=== PATIENT | female | born 1940 | race Caucasian/White ===

== ENCOUNTER → 2017-02-07 | Outpatient (CLI) | payer MEDICARE, OTHER ==
--- NOTE | 2017-02-07 18:06 | Diagnostic Imaging Report ---
EXAMINATION: Left tibia and fibula. INDICATION: Knee pain. AP and lateral views were obtained. FINDINGS: There is no fracture, dislocation, or acute bony abnormality evident. As noted on the left knee exam performed in conjunction with the study, there is moderate narrowing of the medial compartment of the knee joint. The knee joint is otherwise well maintained. The ankle mortise is not widened, and the talar dome is smooth. Incidental note is made of a prominent calcaneal spur. The soft tissues are unremarkable. IMPRESSION: There is no evidence for an acute bony abnormality. Dictated by: Dictated on workstation # [id number]
--- NOTE | 2017-02-07 18:16 | Diagnostic Imaging Report ---
EXAMINATION: Left knee. INDICATION: Knee pain. Three views were obtained. FINDINGS: There is no fracture, dislocation, or acute bony abnormality evident. There is moderate narrowing of the medial compartment of the knee joint. The lateral compartment and the patellofemoral space are fairly well maintained. The soft tissues are unremarkable. IMPRESSION: 1. There is no evidence for an acute bony abnormality. 2. There is moderate narrowing of the medial compartment of the knee joint. Dictated by: Dictated on workstation # [id number]
== END ==
LOC: RAD 14:42
PROVIDERS: ATTEND Nurse Practitioner Family
DX: S89.92XA Unspecified injury of left lower leg, initial encounter (principal); M79.605 Pain in left leg; V58.9XXA Unspecified occupant of pick-up truck or van injured in noncollision transport accident in traffic accident, initial encounter; Y99.8 Other external cause status
CPT/HCPCS: 73562; 73590

== ENCOUNTER 2018-12-05 20:48 | Outpatient (CLI) | payer MEDICARE, OTHER | END 2018-12-06 06:15 | disposition home or self-care (01) | LOC: SLEEP 20:48 | PROVIDERS: ATTEND Family Medicine | DX: G47.33 Obstructive sleep apnea (adult) (pediatric) (principal); G47.10 Hypersomnia, unspecified; I10 Essential (primary) hypertension; R06.83 Snoring; F39 Unspecified mood [affective] disorder | CPT/HCPCS: 95811 ==

== ENCOUNTER 2020-04-24 05:33 | Outpatient (RCR) | payer MEDICARE, OTHER ==
[~2020-04-24] VITALS: Ht 149 cm; Wt 72.0 kg
[~2020-04-24 05:33] MED LIST: AMLO1CAP18 PO; ASPI-586 PO; DULO60CA59 PO; EZET10TA49 PO; FISH12002 PO; FLAX100031 PO; GABA300C PO; HYDR-700 PO; LEVO112T2 PO; NFBIOT1000 PO; POTA20TA8 PO; TRAZ-227 PO
== END 2020-04-24 14:43 | disposition home or self-care (01) ==
LOC: PREOP 05:33
PROVIDERS: ATTEND Podiatrist Foot & Ankle Surgery
DX: Z01.818 Encounter for other preprocedural examination (principal); Z11.59 Encounter for screening for other viral diseases
CPT/HCPCS: 87635

== ENCOUNTER 2020-04-28 07:26 | Day surgery (SDC) | payer MEDICARE, OTHER ==
[2020-04-28] VITALS (9 sets, daily range): BP systolic 120–150; BP diastolic 51–78
[~2020-04-28] VITALS: Ht 149 cm; Wt 72.0 kg
--- OUTSIDE RECORDS SUMMARY | 2020-04-28 07:31 | XMS REPORT ---
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 information no name no or ganization name - 09-14-2018 04-13-2018 Patient encounter no information no name no or ganization name - 05-22-2018 10-03-2017 Patient encounter no information no name no or ganization name - 10-03-2017 09-28-2017 Patient encounter no information no name no or ganization name - 09-29-2017 04-22-2020 Patient encounter no information DEEPAK FIELDS DPM (no [facility] procedure phone) [facility] (no phone) 11-12-2019 Patient encounter no information no name no or ganization name - procedure 11-12-2019 10-11-2019 Patient encounter no information no name no or ganization name - procedure 10-11-2019 10-11-2019 Patient encounter no information no name no or ganization name - procedure 10-11-2019 04-05-2019 Patient encounter no information no name no or ganization name - procedure 04-06-2019 12-05-2018 Patient encounter no information KIP Ford ork no organization name - procedure Phone: 12-06-2018 12-05-2018 Patient encounter no information KIP Mcdonald [facility] - procedure (no phone) [facility] 12-06-2018 (no phone) 11-13-2018 Patient encounter no information no name no or ganization name - procedure 11-14-2018 11-09-2018 Patient encounter no information no name no or ganization name - procedure 11-10-2018 11-03-2018 Patient encounter no information no name no or ganization name procedure 11-01-2018 Patient encounter no information no name no or ganization name - procedure 11-02-2018 10-05-2018 Patient encounter no information no name no or ganization name - procedure 10-06-2018 10-05-2018 Patient encounter no information no name no or ganization name - procedure 10-06-2018 09-10-2018 Patient encounter no information no name no or ganization name - procedure 09-11-2018 04-12-2018 Patient encounter no information no name no or ganization name - procedure 04-13-2018 04-06-2018 Patient encounter no information no name no or ganization name - procedure 04-07-2018 03-28-2018 Patient encounter no information no name no or ganization name - procedure 03-29-2018 12-01-2017 Patient encounter no information no name no or ganization name - procedure 12-02-2017 09-28-2017 Patient encounter no information no name no or ganization name - procedure 09-29-2017 03-29-2017 Patient encounter no information no name no or ganization name - procedure 03-30-2017 02-07-2017 Patient encounter no information no name no or ganization name procedure 02-07-2017 Patient encounter no information OSMANY SIMS (no [facility] procedure phone) [facility] (no phone) no information Encounter for general no name no organ ization name adult medical examination with abnormal findings NEGATED no information Routine general no name no orga nization name medical examination at a health care facility Medical Equipment The data below is from unstructured sourcesNo Medical Equipment Information available Payers Normalized Payer Value Medicare no information Unknown no information ([id number]) Medicare [id number] ([id number]) Evaluation note Note Type Note Facility Evaluation No Assessments Information Available A sc[facility] note [facility] ([id number]) Advance Directives Advance Directive Response Recorded Date/Time Advance Directives No Ju ne 2019 1:14pm Health Care Power of Heavy Equipment Mechanic No April 22, 2020 1:14pm Resuscitation Status Full Code April 22, 2020 1:14pm Discharge Instructions No hospital discharge instruction information available. Summary Purpose Interface Exchange Family History Family History data not found History of Past Illness No Past Medical History data Assessments No Assessment data Chief Complaint Reason For Visit Effective Dates Notes injection(s) 08/17/2010 flu shot Review of System No Review of Systems data Physical Exam No Physical Exam data History of Present Illness No History of Present Illness data Instructions No Instructions Additional Source Comments This clinical document has been generated using [employer] software that has been certified by the Office of the National Coordinator for Health Information Technology (ONC 15.99.04.3023.Diam.[id number]) and the National Committee for Appliances Sample Maker (NCQA, as an eMeasure certified technology). FOR RECORDS PERTAINING TO PATIENTS WHO ARE OR HAVE BEEN ENROLLED IN A CHEMICAL D EPENDENCY/SUBSTANCE ABUSE PROGRAM, SOME INFORMATION MAY BE OMITTED. This clinica l summary was aggregated from multiple sources. Caution should be exercised in using it in the provision of clinical care. This summary normalizes information from multiple sources, and as a consequence, information in this document may ma terially change the coding, format and clinical context of patient data. In gris tion, data may be omitted in some cases. CLINICAL DECISIONS SHOULD BE BASED ON T HE PRIMARY CLINICAL RECORDS. [facility] [employer] [facility]. provides no warranty or guara ntee of the accuracy or completeness of information in this document.The followi information is based on time limited clinical information
--- OUTSIDE RECORDS SUMMARY | 2020-04-28 07:31 | XMS REPORT | CCD ---
Author Author Bethany Huang D.O. Organization [facility] Address [address] [place] [phone] Phone Care Team Providers Care Clinical Operations Manager Name Role Phone PP Unavailable CCM Unavailable Summary Purpose Interface Exchange Insurance Providers Payer name Policy type / Coverage type Covered alliance party ID Effective Begin Date Effective End Date [facility] Commercial Insurance [id number] Unknown Unknown Family History Family History data not found Social History No Social History data Allergies, Adverse Reactions, Alerts Allergies, Adverse Reactions, Alerts data not found PAST MEDICAL HISTORY No Past Medical History data Problems No Problems data Medications No Medication History data Medication Administered No Medication Administered data Immunizations Vaccine Codes Date Status Influenza (Adult) CVX: 141 08/17/2010 completed Assessments No Assessment data Reason For Visit Reason For Visit Effective Dates Notes injection(s) 08/17/2010 flu shot Results No Results data Review of Systems No Review of Systems data Physical Exam No Physical Exam data Procedures Procedure Codes Date FLU VACCINE 3 YRS & > IM UP 64 CPT-4: 45211 08/17/2010 ADMIN INFLUENZA VIRU S VAC CPT-4: G0008 08/17/2010 Vital Signs No Vital signs data Functional Status No Functional Status data History of Present Illness No History of Present Illness data Advance Directives No Advance Directive data Encounters No Encounter data Plan of Care Planned Activity Notes C odes Status Date Appointment: Sada Huang [facility]el[facility] [phone] [facility] [id number] [facility] 08/17/2010 Patient Education: Patient Medication Summary Completed 08/17/2010 Instructions No Instructions
--- OUTSIDE RECORDS SUMMARY | 2020-04-28 07:32 | XMS REPORT | Continuity of Care Document ---
Author Organization Unknown Address Unknown Phone Unavailable Allergies Active Description Code Type Severity Reaction Onset Reported/Identified Relationship to Patient Clinical Status Yes [id number] REDUCTASE INHIBITORS UNKNOWN OTHER Yes [id number] REDUCTASE INHIBITORS UNKNOWN UNKNOWN Yes No Known Drug Allergies [id number] Drug Allergy Unknown N/A 04/22/2020 Medications There is no data. Problems Date Dx Coded Attending Type Code Diagnosis Diagnosed By 10/06/1442 DEEPAK FIELDS DPM Ot Z01.818 ENCOUNTER FOR OTHER PREPROCEDURAL EXAMIN 10/06/1442 DEEPAK FIELDS DPM Ot Z11. 59 ENCOUNTER FOR SCREENING FOR OTHER VIRAL 03/16/2017 OSMANY FULLER LOG DECK TENDER Ot M79.605 PAIN IN LEFT LEG 03/16/2017 OSMANY FULLER LOG DECK TENDER Ot S89.92XA UNSPECIFIED INJURY OF LEFT LOWER LEG, IN 03/16/2017 OSMANY FULLER LOG DECK TENDER Ot V58.9XXA OCCUP OF PK-UP/VAN INJ IN NONCLSN TRNSP 03/16/2017 OSMANY FULLER LOG DECK TENDER Ot Y99. 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 03/29/2017 W G47.33 OBS TRUCTIVE SLEEP APNEA (ADULT) (PEDIATRIC) 03/29/2017 W I10 ESSENT IAL (PRIMARY) HYPERTENSION 03/29/2017 W N18.3 CYANIDE CASE HARDENER GUILHERME KIDNEY DISEASE, STAGE 3 (MODERATE) 09/28/2017 KIP MAX W 244.9 UNSPECIFIED HYPOTHYROIDISM 09/28/2017 KIP MAX W 272.4 OTHER AND UNSPECIFIED HYPERLIPIDEMIA 09/28/2017 KIP MAX W 401.0 MALIGNANT ESSENTIAL HYPERTENSION 09/28/2017 KIP MAX W E03.9 HYPOTHYROIDISM, UNSPECIFIED 09/28/2017 KIP MAX W E78.5 HYPERLIPIDEMIA, UNSPECIFIED 09/28/2017 KIP MAX W I10 ESSENTIAL (PRIMARY) HYPERTENSION 09/28/2017 KIP MAX W V70.0 ROUTINE GENERAL MEDICAL EXAMINATION AT A HEALTH CARE FACILITY 09/28/2017 KIP MAX Logan Z00.01 ENCOUNTER FOR GENERAL ADULT MEDICAL EXAMINATION WITH ABNORMAL FINDINGS 09/28/2017 KIP MAX W 244.9 UNSPECIFIED HYPOTHYROIDISM 09/28/2017 KIP MAX W 272.4 OTHER AND UNSPECIFIED HYPERLIPIDEMIA 09/28/2017 KIP MAX W 401.0 MALIGNANT ESSENTIAL HYPERTENSION 09/28/2017 KIP MAX W 585.3 09/28/2017 KIP MAX W E03.9 HYPOTHYROIDISM, UNSPECIFIED 09/28/2017 KIP MAX W E78.5 HYPERLIPIDEMIA, UNSPECIFIED 09/28/2017 KIP MAX W I10 ESSENTIAL (PRIMARY) HYPERTENSION 09/28/2017 KIP MAX W N18.3 CHRONIC KIDNEY DISEASE, STAGE 3 (MODERATE) 09/28/2017 KIP MAX Logan V70.0 ROUTINE GENERAL MEDICAL EXAMINATION AT A HEALTH CARE FACILITY 09/28/2017 KIP MAX Logan Z00.01 ENCOUNTER FOR GENERAL ADULT MEDICAL EXAMINATION WITH ABNORMAL FINDINGS 09/28/2017 W 244.9 UNSP ECIFIED HYPOTHYROIDISM 09/28/2017 W 272.4 OTHE R AND UNSPECIFIED HYPERLIPIDEMIA 09/28/2017 W 401.0 MIKE GNANT ESSENTIAL HYPERTENSION 09/28/2017 W 585.3 CYANIDE CASE HARDENER GUILHERME KIDNEY DISEASE, STAGE III (MODERATE) 09/28/2017 W E03.9 HYPO THYROIDISM, UNSPECIFIED 09/28/2017 W E78.5 HYPE RLIPIDEMIA, UNSPECIFIED 09/28/2017 W I10 ESSENT IAL (PRIMARY) HYPERTENSION 09/28/2017 W N18.3 CYANIDE CASE HARDENER GUILHERME KIDNEY DISEASE, STAGE 3 (MODERATE) 09/28/2017 W V70.0 ROUT INE GENERAL MEDICAL EXAMINATION AT A HEALTH CARE FACILITY 09/28/2017 W Z00.01 ENC OUNTER FOR GENERAL ADULT MEDICAL EXAMINATION WITH ABNORMAL FINDINGS 09/28/2017 KIP MAX W 244.9 UNSPECIFIED HYPOTHYROIDISM 09/28/2017 KIP MAX W 272.4 OTHER AND UNSPECIFIED HYPERLIPIDEMIA 09/28/2017 KIP MAX W 401.0 MALIGNANT ESSENTIAL HYPERTENSION 09/28/2017 KIP MAX W 585.3 09/28/2017 KIP MAX W E03.9 HYPOTHYROIDISM, UNSPECIFIED 09/28/2017 KIP MAX W E78.5 HYPERLIPIDEMIA, UNSPECIFIED 09/28/2017 KIP MAX W I10 ESSENTIAL (PRIMARY) HYPERTENSION 09/28/2017 KIP MAX W N18.3 CHRONIC KIDNEY DISEASE, STAGE 3 (MODERATE) 09/28/2017 KIP MAX W V70.0 ROUTINE GENERAL MEDICAL EXAMINATION AT A HEALTH CARE FACILITY 09/28/2017 KIP MAX W Z00.01 ENCOUNTER FOR GENERAL ADULT MEDICAL EXAMINATION WITH ABNORMAL FINDINGS 10/03/2017 KIP MAX W V70.0 ROUTINE GENERAL MEDICAL EXAMINATION AT A HEALTH CARE FACILITY 10/03/2017 KIP MAX W Z00.01 ENCOUNTER FOR GENERAL ADULT MEDICAL EXAMINATION WITH ABNORMAL FINDINGS 10/03/2017 KIP MAX W V70.0 ROUTINE GENERAL MEDICAL EXAMINATION AT A HEALTH CARE FACILITY 10/03/2017 KIP MAX W Z00.01 ENCOUNTER FOR GENERAL ADULT MEDICAL EXAMINATION WITH ABNORMAL FINDINGS 12/01/2017 A 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 12/01/2017 A 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 03/28/2018 KIP MAX W 401.0 MALIGNANT ESSENTIAL HYPERTENSION 03/28/2018 KIP MAX W I10 ESSENTIAL (PRIMARY) HYPERTENSION 03/28/2018 KIP MAX W 272.4 OTHER AND UNSPECIFIED HYPERLIPIDEMIA 03/28/2018 KIP MAX W 401.0 MALIGNANT ESSENTIAL HYPERTENSION 03/28/2018 KIP MAX W E78.5 HYPERLIPIDEMIA, UNSPECIFIED 03/28/2018 KIP MAX W I10 ESSENTIAL (PRIMARY) HYPERTENSION 03/28/2018 KIP MAX W 244.9 UNSPECIFIED HYPOTHYROIDISM 03/28/2018 KIP MAX W 272.4 OTHER AND UNSPECIFIED HYPERLIPIDEMIA 03/28/2018 KIP MAX W 401.0 MALIGNANT ESSENTIAL HYPERTENSION 03/28/2018 KIP MAX W E03.9 HYPOTHYROIDISM, UNSPECIFIED 03/28/2018 KIP MAX W E78.5 HYPERLIPIDEMIA, UNSPECIFIED 03/28/2018 KIP MAX W I10 ESSENTIAL (PRIMARY) HYPERTENSION 03/28/2018 W 244.9 UNSP ECIFIED HYPOTHYROIDISM 03/28/2018 W 272.4 OTHE R AND UNSPECIFIED HYPERLIPIDEMIA 03/28/2018 W 401.0 MIKE GNANT ESSENTIAL HYPERTENSION 03/28/2018 W 840.8 SPRA IN OF OTHER SPECIFIED SITES OF SHOULDER AND UPPER ARM 03/28/2018 W E03.9 HYPO THYROIDISM, UNSPECIFIED 03/28/2018 W E78.5 HYPE RLIPIDEMIA, UNSPECIFIED 03/28/2018 W I10 ESSENT IAL (PRIMARY) HYPERTENSION 03/28/[address] RAIN OF MUSCLE(S) AND TENDON(S) OF THE ROTATOR CUFF OF LEFT SHOULDER 03/28/2018 KIP MAX W 244.9 UNSPECIFIED HYPOTHYROIDISM 03/28/2018 KIP MAX W 272.4 OTHER AND UNSPECIFIED HYPERLIPIDEMIA 03/28/2018 KIP MAX W 401.0 MALIGNANT ESSENTIAL HYPERTENSION 03/28/2018 KIP MAX W E03.9 HYPOTHYROIDISM, UNSPECIFIED 03/28/2018 KIP MAX E78.5 HYPERLIPIDEMIA, UNSPECIFIED 03/28/2018 KIP MAX W I10 ESSENTIAL (PRIMARY) HYPERTENSION 04/06/2018 W 719.41 MILO N IN JOINT INVOLVING SHOULDER REGION 04/06/2018 W M25.512 PA IN IN LEFT SHOULDER 04/06/2018 A S46.092D O THER INJURY OF MUSCLE(S) AND TENDON(S) OF THE ROTATOR CUFF OF LEFT SHOULDER, SUBSEQUENT ENCOUNTER 04/06/2018 A V58.89 ENC OUNTER FOR OTHER SPECIFIED AFTERCARE 04/09/2018 Shanika Arroyo W 719.41 PAIN IN JOINT INVOLVING SHOULDER REGION 04/09/2018 Shanika Arroyo W M25.512 PAIN IN LEFT SHOULDER 04/09/2018 Shanika Arroyo A S46.092D OTHER INJURY OF MUSCLE(S) AND TENDON(S) OF THE ROTATOR CUFF OF LEFT SHOULDER, SUBSEQUENT ENCOUNTER 04/09/2018 CruzShanika reynolds V58.89 ENCOUNTER FOR OTHER SPECIFIED AFTERCARE 04/09/2018 CruzShanika 719.41 PAIN IN JOINT INVOLVING SHOULDER REGION 04/09/2018 CruzShanika reynolds M25.512 PAIN IN LEFT SHOULDER 04/09/2018 eDbra Arroyonevaeh Griffin S46.092D OTHER INJURY OF MUSCLE(S) AND TENDON(S) OF THE ROTATOR CUFF OF LEFT SHOULDER, SUBSEQUENT ENCOUNTER 04/09/2018 Shanika Arroyo V58.89 ENCOUNTER FOR OTHER SPECIFIED AFTERCARE 04/14/2018 HIRAM MACDONALD 715.11 OSTEOARTHROSIS, LOCALIZED, PRIMARY, INVOLVING SHOULDER REGION 04/14/2018 HIRAM MACDONALD M19.012 PRIMARY OSTEOARTHRITIS, LEFT SHOULDER 05/22/2018 HIRAM MACDONALD 715.11 OSTEOARTHROSIS, LOCALIZED, PRIMARY, INVOLVING SHOULDER REGION 05/22/2018 HIRAM MACDONALD M19.012 PRIMARY OSTEOARTHRITIS, LEFT SHOULDER 09/10/2018 W 923.03 CON TUSION OF UPPER ARM 09/10/2018 W S40.029A C ONTUSION OF UNSPECIFIED UPPER ARM, INITIAL ENCOUNTER 10/05/2018 KIP MAX 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 10/05/2018 KIP MAX E83.42 HYPOMAGNESEMIA 10/05/2018 KIP MAX V70.0 ROUTINE GENERAL MEDICAL EXAMINATION AT A HEALTH CARE FACILITY 10/05/2018 KIP MAX Z00.01 ENCOUNTER FOR GENERAL ADULT MEDICAL EXAMINATION WITH ABNORMAL FINDINGS 10/05/2018 KIP MAX 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 10/05/2018 KIP MAX E83.42 HYPOMAGNESEMIA 10/05/2018 KIP MAX V70.0 ROUTINE GENERAL MEDICAL EXAMINATION AT A HEALTH CARE FACILITY 10/05/2018 KIP MAX Z00.01 ENCOUNTER FOR GENERAL ADULT MEDICAL EXAMINATION WITH ABNORMAL FINDINGS 10/05/2018 W 244.9 UNSP ECIFIED HYPOTHYROIDISM 10/05/2018 W 275.2 DISO RDERS OF MAGNESIUM METABOLISM 10/05/2018 W 401.0 MIKE GNANT ESSENTIAL HYPERTENSION 10/05/2018 W 466.0 ACUT E BRONCHITIS 10/05/2018 W 780.93 MEM ORY LOSS 10/05/2018 W E03.9 HYPO THYROIDISM, UNSPECIFIED 10/05/2018 W E83.42 HYP OMAGNESEMIA 10/05/2018 W I10 ESSENT IAL (PRIMARY) HYPERTENSION 10/05/2018 W J20.9 ACUT E BRONCHITIS, UNSPECIFIED 10/05/2018 W R41.3 OTHE R AMNESIA 10/05/2018 W V70.0 ROUT INE GENERAL MEDICAL EXAMINATION AT A HEALTH CARE FACILITY 10/05/2018 W Z00.01 ENC OUNTER FOR GENERAL ADULT MEDICAL EXAMINATION WITH ABNORMAL FINDINGS 10/05/2018 KIP MAX W 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 10/05/2018 KIP MAX E83.42 HYPOMAGNESEMIA 10/05/2018 KIP MAX V70.0 ROUTINE GENERAL MEDICAL EXAMINATION AT A HEALTH CARE FACILITY 10/05/2018 KIP MAX Z00.01 ENCOUNTER FOR GENERAL ADULT MEDICAL EXAMINATION WITH ABNORMAL FINDINGS 11/01/2018 KIP MAX 794.8 NONSPECIFIC ABNORMAL RESULTS OF FUNCTION STUDY OF LIVER 11/01/2018 KIP MAX R94.5 ABNORMAL RESULTS OF LIVER FUNCTION STUDIES 11/01/2018 W 794.8 NONS PECIFIC ABNORMAL RESULTS OF FUNCTION STUDY OF LIVER 11/01/2018 W R94.5 ABNO RMAL RESULTS OF LIVER FUNCTION STUDIES 11/01/2018 W V76.10 SOHEILA AST SCREENING, UNSPECIFIED 11/01/2018 W Z12.39 ENC OUNTER FOR OTHER SCREENING FOR MALIGNANT NEOPLASM OF BREAST 11/01/2018 KIP MAX 794.8 NONSPECIFIC ABNORMAL RESULTS OF FUNCTION STUDY OF LIVER 11/01/2018 KIP MAX W R94.5 ABNORMAL RESULTS OF LIVER FUNCTION STUDIES 11/09/2018 KIP MAX V76.10 BREAST SCREENING, UNSPECIFIED 11/09/2018 KIP MAX Z12.39 ENCOUNTER FOR OTHER SCREENING FOR MALIGNANT NEOPLASM OF BREAST 11/09/2018 KIP MAX V76.10 BREAST SCREENING, UNSPECIFIED 11/09/2018 KIP MAX Z12.39 ENCOUNTER FOR OTHER SCREENING FOR MALIGNANT NEOPLASM OF BREAST 11/13/2018 W 780.57 UNS PECIFIED SLEEP APNEA 11/13/2018 W G47.33 OBS TRUCTIVE SLEEP APNEA (ADULT) (PEDIATRIC) 12/02/2018 OSMANY FULLER LOG DECK TENDER Ot M79.605 PAIN IN LEFT LEG 12/02/2018 OSMANY FULLER LOG DECK TENDER Ot S89.92XA UNSPECIFIED INJURY OF LEFT LOWER LEG, IN 12/02/2018 OSMANY FULLER LOG DECK TENDER Ot V58.9XXA OCCUP OF PK-UP/VAN INJ IN NONCLSN TRNSP 12/02/2018 OSMANY FULLER LOG DECK TENDER Ot Y99. 8 OTHER EXTERNAL CAUSE STATUS 12/02/2018 KIP MAX MD L Ot G47.33 OBSTRUCTIVE SLEEP APNEA (ADULT) (PEDIATR 12/05/2018 KIP MAX MD Ot G47.33 OBSTRUCTIVE SLEEP APNEA (ADULT) (PEDIATR 12/05/2018 KIP MAX MD Ot G47.33 OBSTRUCTIVE SLEEP APNEA (ADULT) (PEDIATR 12/05/2018 KIP MAX MD Ot G47.33 OBSTRUCTIVE SLEEP APNEA (ADULT) (PEDIATR 12/05/2018 KIP MAX MD L Ot G47.33 OBSTRUCTIVE SLEEP APNEA (ADULT) (PEDIATR 12/05/2018 KIP MAX MD Ot G47.33 OBSTRUCTIVE SLEEP APNEA (ADULT) (PEDIATR 12/06/2018 KIP MAX MD Ot F3 9 UNSPECIFIED MOOD [AFFECTIVE] DISORDER 12/06/2018 KIP MAX MD L Ot G47.10 HYPERSOMNIA, UNSPECIFIED 12/06/2018 KIP MAX MD L Ot G47.33 OBSTRUCTIVE SLEEP APNEA (ADULT) (PEDIATR 12/06/2018 KIP MAX MD L Ot I1 0 ESSENTIAL (PRIMARY) HYPERTENSION 12/06/2018 KIP MAX MD L Ot R06.83 SNORING 12/06/2018 KIP MAX MD L Ot F3 9 UNSPECIFIED MOOD [AFFECTIVE] DISORDER 12/06/2018 KIP MAX MD L Ot G47.10 HYPERSOMNIA, UNSPECIFIED 12/06/2018 KIP MAX MD L Ot G47.33 OBSTRUCTIVE SLEEP APNEA (ADULT) (PEDIATR 12/06/2018 KIP MAX MD L Ot I1 0 ESSENTIAL (PRIMARY) HYPERTENSION 12/06/2018 KIP MAX MD L Ot R06.83 SNORING 04/05/2019 W 244.9 UNSP ECIFIED HYPOTHYROIDISM 04/05/2019 W 272.4 OTHE R AND UNSPECIFIED HYPERLIPIDEMIA 04/05/2019 W 401.0 MIKE GNANT ESSENTIAL HYPERTENSION 04/05/2019 W E03.9 HYPO THYROIDISM, UNSPECIFIED 04/05/2019 W E78.5 HYPE RLIPIDEMIA, UNSPECIFIED 04/05/2019 W I10 ESSENT IAL (PRIMARY) HYPERTENSION 04/22/2020 FULLEROSMANY LOG DECK TENDER Ot M79.605 PAIN IN LEFT LEG 04/22/2020 FULLEROSMANY LOG DECK TENDER Ot S89.92XA UNSPECIFIED INJURY OF LEFT LOWER LEG, IN 04/22/2020 JONNY OSMANY Hough LOG DECK TENDER Ot V58.9XXA OCCUP OF PK-UP/VAN INJ IN NONCLSN TRNSP 04/22/2020 OSMANY FULLER LOG DECK TENDER Ot Y99. 8 OTHER EXTERNAL CAUSE STATUS 04/22/2020 JONNY OSMANY Hough LOG DECK TENDER Ot M79.605 PAIN IN LEFT LEG 04/22/2020 JONNYOSMANY [place] LOG DECK TENDER Ot S89.92XA UNSPECIFIED INJURY OF LEFT LOWER LEG, IN 04/22/2020 OSMANY FULLER LOG DECK TENDER Ot V58.9XXA OCCUP OF PK-UP/VAN INJ IN NONCLSN TRNSP 04/22/2020 FULLEROSMANY LOG DECK TENDER Ot Y99. 8 OTHER EXTERNAL CAUSE STATUS Procedures There is no data. Results Test Result Range Hemoglobin A1C - 03/22/17 13:30 % A1C 5.50 % 5.40-6.60 AvGlu 118 mg/dL 70-110 Comprehensive Metabolic Panel - 09/28/17 15:15 Albumin 4.3 g/dL 3.6-5.1 ALP 112 U/L 35-130 ALT 35 U/L 6-45 Anion Gap 15 6-14 AST 26 U/L 2-40 BUN 16 mg/dL 5-25 Calcium 10.8 mg/dL 8.3-10.4 Chloride 102 mmol/L 95-114 CO2 25 mEq/L 22-33 Creat 1.18 mg/dL 0.50-1.50 eGFR 44 mL/min/1.73m2 >59 Globulin 3.0 g/dL 2.3-3.5 Glucose 123 mg/dL 70-110 Osmo 287 280-295 Potassium 4.1 mmol/L 3.5-5.3 Sodium 138 mmol/L 134-148 TBil 0.4 mg/dL 0.2-1.2 TP 7.3 g/dL 6.0-8.3 Surgical Pathology - 10/05/17 14:30 Surg Path Sent to [facility] Surgical Pathology - 12/08/17 12:36 Surg Path Sent to [facility] Thyroid Stimulating Hormone - 03/28/18 1 4:32 TSH 1.31 mIU/mL 0.32-5.00 Magnesium - 10/05/18 10:00 Mg++ 1.8 mg/dL 1.6-2.6 Hepatic Panel - 11/01/18 13:58 Albumin 4.5 g/dL 3.6-5.1 ALP 114 U/L 35-130 ALT 30 U/L 6-45 AST 29 U/L 2-40 DBil 0.1 mg/dL 0.0-0.2 GGT 32 U/L 5-40 Globulin 2.9 g/dL 2.3-3.5 TBil 0.3 mg/dL 0.2-1.2 TP 7.4 g/dL 6.0-8.3 Thyroid Stimulating Hormone - 04/05/19 0 9:15 TSH 0.66 mIU/mL 0.32-5.00 Lipid Panel - 10/11/19 09:05 C/HDL 3.3 3.7-6.7 Cholesterol 239 mg/dL 100-240 HDL 73 mg/dL 30-85 LDL-Calculated 139 mg/dL 0-100 Trig 134 mg/dL 35-160 VLDL 27 mg/dL 0-42 Coronavirus SARS-CoV-2 SO 2018 - 0 07:48 Coronavirus Ab [Units/volume] in Serum Negative Negative Encounters ACCT No. Visit Date/Time Discharge Status Pt. Type Provider Facility Loc./Unit Complaint [id number] 11/03/2018 15:30:00 11/03/2018 23:59: 59 CLS Outpatient SARY DUQUE LAC [facility] [id number] 11/12/2019 12:41:00 11/12/2019 23:59 :00 DIS Outpatient KIP MAX [id number] 10/11/2019 13:07:00 10/11/2019 23:59 :00 DIS Outpatient KIP MAX [id number] 10/11/2019 10:24:00 10/11/2019 23:59 :00 DIS Outpatient KIP MAX [id number] 04/05/2019 11:21:00 04/05/2019 23:59: 00 DIS Outpatient KIP MAX [id number] 11/09/2018 12:48:00 11/09/2018 23:59: 00 DIS Outpatient KIP MAX [id number] 11/01/2018 13:57:00 11/01/2018 23:59: 00 DIS Outpatient KIP MAX [id number] 10/05/2018 14:47:00 10/05/2018 23:59: 00 DIS Outpatient KIP MAX [id number] 09/13/2018 11:18:00 09/13/2018 23:59: 00 DIS Outpatient TORRESHIRAM BROUSSARD [id number] 09/13/2018 10:35:00 09/13/2018 23:59: 00 DIS Outpatient HIRAM MACDONALD [id number] 04/13/2018 12:52:00 05/22/2018 10:30: 00 DIS Outpatient TORRESHIRAM BROUSSARD [id number] 04/12/2018 09:34:00 04/12/2018 23:59: 00 DIS Outpatient HIRAM MACDONALD [id number] 04/09/2018 08:51:00 04/09/2018 23:59: 00 DIS Outpatient Shanika Arroyo [id number] 04/06/2018 15:08:00 04/06/2018 23:59: 00 DIS Outpatient KIP MAX [id number] 03/28/2018 14:31:00 03/28/2018 23:59: 00 DIS Outpatient KIP MAX [id number] 12/08/2017 12:36:00 12/08/2017 23:59: 00 DIS Outpatient KIP MAX [id number] 10/05/2017 19:52:00 10/05/2017 23:59: 00 DIS Outpatient KIP MAX [id number] 10/05/2017 10:00:00 10/05/2017 23:59: 00 DIS Outpatient KIP MAX [id number] 10/03/2017 12:51:00 10/03/2017 23:59: 00 DIS Outpatient MANSOOR KIP [id number] 09/28/2017 15:15:00 09/28/2017 23:59: 00 DIS Outpatient KIP MAX [id number] 03/22/2017 14:14:00 03/22/2017 23:59: 00 DIS Outpatient MANSOOR KIP [id number] 09/28/2016 10:42:00 09/28/2016 23:59: 00 DIS Outpatient KIP MAX [id number] 08/13/2019 18:48:36 Document Registration [id number] 04/05/2019 09:00:00 Document Registration [id number] 11/13/2018 09:30:00 Document Registration [id number] 11/01/2018 13:05:00 Document Registration [id number] 10/05/2018 09:40:00 Document Registration [id number] 09/10/2018 14:00:00 Document Registration [id number] 04/06/2018 14:30:00 Document Registration [id number] 03/28/2018 13:00:00 Document Registration [id number] 12/01/2017 15:00:00 Document Registration [id number] 03/29/2017 08:49:00 Document Registration [id number] 04/24/2020 05:33:00 14:43:00 DIS Outpatient DIAMOND DPM, DEEPAK Q [facility] PREOP HALLUX VALGUS RIGHT [id number] 12/05/2018 20:48:00 019 06:15:00 DIS Outpatient KIP MAX MD [facility] SLEEP OBSTRUCTIVE SLEEP APNE A [id number] 11/14/2018 12:00:00 23:59:59 CLS Preadmit KIP MAX MD [facility] SLEEP JOVAN G47.33 [id number] 02/07/2017 14:42:00 017 23:59:59 CLS Outpatient OSMANY FULLER [facility] RAD LT KNEE AND LOWER LEG P AIN [id number] 03/15/2014 20:15:00 014 06:30:00 DIS Outpatient [id number] 01/24/2014 20:41:00 014 06:40:00 DIS Outpatient [id number] 04/28/2020 09:00:00 P EN Preadmit DIAMOND DPM, DEEPAK Q [facility] SDC HALLUX VALGUS, 2ND HAMMERTOE , 2ND METATARSALGIA
[2020-04-28] MEDS ORDERED: ceFAZolin INJECTION 1,000 MG in WATER (STERILE) FOR INJECTION 10 ML IV ONE (08:00)
[2020-04-28] MEDS ORDERED: CATHETER FLUSH 10 ML SYR IV PRN (08:00)
[2020-04-28] MEDS ORDERED: DEXAMETHASONE 10 MG/ML (DECADRON) 1 ML VIAL ONE (08:18)
[2020-04-28] MEDS ORDERED: BUPIVACAINE 0.5% 30 ML (SENSORCAINE) VIAL ONE (08:18)
[2020-04-28] MEDS ORDERED: ONDANSETRON 4 MG/2 ML (SDV) Z0FRAN ONE (08:38)
[2020-04-28] MEDS ORDERED: proPOfol 200 MG/20 ML (DIPRIVAN) VIAL IV ONE (08:38)
[2020-04-28] MEDS ORDERED: SEVOFLURANE (ULTANE) 15 ML INHAL SOLN ONE ×7 (08:38→11:00)
[2020-04-28] MEDS ORDERED: LIDOCAINE 2% 20 ML (XYLOCAINE) VIAL ONE (08:38)
[2020-04-28] MEDS ORDERED: fentaNYL INJECTION 100 MCG/2 ML AMP ONE (08:38)
[2020-04-28] MEDS ORDERED: LACTATED RINGERS 1,000 ML IV PRN (08:41)
--- NOTE | 2020-04-28 08:53 | Progress Note-Pre Operative ---
Pre-Operative Progress Note H&P Reviewed The H&P was reviewed, patient examined and no changes noted. Date Seen by Provider: Apr 28, 2020 Time Seen by Provider: 08:52 Date H&P Reviewed: Apr 28, 2020 Time H&P Reviewed: 08:52 Pre-Operative Diagnosis: Hallux Valgus, Hypertrophic 2nd Metatarsal and Hammertoe, Skin Lesion, DEEPAK Jameson DPM Apr 28, 2020 08:53
[2020-04-28] MEDS ORDERED: LIDOCAINE 1% INJ 20 ML 20 ML VIAL ONE (09:09)
--- NOTE | 2020-04-28 11:08 | Progress Note-Post Operative ---
Post-Operative Progess Note Surgeon (s)/Hydraulic Press Tender (s) Surgeon DEEPAK FIELDS DPM Hydraulic Press Tender: none Pre-Operative Diagnosis Hallux Valgus, Hypertrophic 2nd Metatarsal and Hammertoe, Skin Lesion, righ Post-Operative Diagnosis same Procedure & Operative Findings Date of Procedure 04/28/20 Procedure Performed/Findings Ang-Keshawn Bunionectomy, 2nd Metatarsal osteotomy, reduction of 2nd hammertoe, removal of skin lesion, right foot Anesthesia Type General Estimated Blood Loss Estimated blood loss (mL): Minimal Specimens/Packing Specimens Removed Skin lesion right foot. DEEPAK FIELDS DPM Apr 28, 2020 11:08
[2020-04-28] MEDS ORDERED: LACTATED RINGERS 1,000 ML IV SCH (11:10)
[2020-04-28] MEDS ORDERED: CEPH500C PO (11:13)
[2020-04-28] MEDS ORDERED: HYDR-83 PO (11:13)
[2020-04-28] MEDS ORDERED: HYDROmorphone 2 MG/ML VIAL (DILAUDID) IV ONE (11:15)
[2020-04-28] MEDS ORDERED: ONDANSETRON 4 MG/2 ML (SDV) Z0FRAN IVP PRN (11:15)
[2020-04-28] MEDS ORDERED: HYDROcodone/APAP 5 MG/325 MG (LORTAB) TAB PO PRN (11:15)
--- NOTE | 2020-04-28 11:18 | Anesthesia-General Post-Op ---
General Patient Condition Mental Status/LOC: Same as Preop Cardiovascular: Satisfactory Nausea/Vomiting: Absent Respiratory: Satisfactory Pain: Controlled Complications: Absent Post Op Complications Complications None Follow Up Care/Instructions Patient Instructions None needed. Anesthesia/Patient Condition Patient Condition Patient is doing well, no complaints, stable vital signs, no apparent adverse anesthesia problems. No complications reported per nursing. D/C home per [facility] Criteria: Yes AMBER JUAREZ CRNA Apr 28, 2020 11:18
--- NOTE | 2020-04-28 11:46 | Diagnostic Imaging Report ---
INDICATION: Right foot surgery AP and lateral views of the right foot are obtained. Previous studies not available at this time for comparison. There have been osteotomies at the 1st metatarsophalangeal joint and at the level of the distal 2nd proximal phalanx. Cerclage wire and pin are present at the 1st metatarsophalangeal joint with K-wire transfixing the 2nd proximal interphalangeal joint with screw in the distal head of 2nd metatarsal. No significant malalignment is identified. IMPRESSION: Extensive surgical findings involving the 1st and 2nd digits as described. No definite acute complication is identified. Dictated by: Dictated on workstation # [id number]
--- NOTE | 2020-04-28 13:20 | NUR ---
HAS DENIED PAIN OR NAUSEA SINCE ARRIVAL TO [facility] FROM [facility]. COBAN WRAPPED KERLIX DSG REMAINS D/I TO RIGHT FOOT. UNABLE TO ASSESS CAP REFILL DUE TO KERLIX DRESSING COVERING TOES. SPLINT SHOE ON. PRESCRIPTION FOR CEPHALEXIN SENT BY DR FIELDS E-SCRIPT TO PT'S LISTED PHARMACY. THIS PHARMACY IS A MAIL ORDER PHARMACY WITH 5 TO 7 DAY MAILING ARRIVAL TIME. CONTACTED DR FIELDS, THEN CONTACTED THIS PHARMACY, SPOKE WITH ELDON Padilla AND PRESCRIPTION CANCELLED. CEPHALEXIN SCRIPT THEN CALLED TO [facility]. INFORMED PT OF CHANGE. PT STATES SHE IS READY FOR DISMISSAL. HAS WALKER AND WHEELCHAIR AT HOME FOR USE.
--- NOTE | 2020-04-28 16:27 | OPERATIVE REPORT ---
DATE OF SERVICE: 04/28/2020 SURGEON: Deepak Fields DPM. PREOPERATIVE DIAGNOSES: 1. Hallux abductovalgus metatarsus primus varus, right foot. 2. Hypertrophic second metatarsal, right foot. 3. Hammer digit syndrome, right second digit. 4. Skin lesion, right foot. POSTOPERATIVE DIAGNOSES: 1. Hallux abductovalgus metatarsus primus varus, right foot. 2. Hypertrophic second metatarsal, right foot. 3. Hammer digit syndrome, right second digit. 4. Skin lesion, right foot. PROCEDURE: 1. Modified Ang-Keshawn bunionectomy, right. 2. Reduction of hammertoe, right second digit. 3. Second metatarsal osteotomy, right. 4. Removal of skin lesion, right foot. WOUND CLASS: Clean. ANESTHESIA: General. HEMOSTASIS: Pneumatic thigh tourniquet at 250 mmHg. INDICATIONS: This 79-year-old female presents complaining of a painful right foot. Conservative therapy has met with unsatisfactory results and the patient is agreeable to surgical intervention after risks and complications were discussed at length. No guarantees were extended to the patient and she is willing to proceed. DESCRIPTION OF PROCEDURE: The patient was brought back to the operating table, placed in secure supine position. A general anesthetic was then induced. Appropriate timeout was performed. The right foot was then prepped and draped in normal sterile manner. The right foot was then elevated, allowed to exsanguinate after which the tourniquet was inflated to 250 mmHg. Preoperative anesthesia with local anesthetic included 1:1 mixture of 1% Xylocaine, 0.5% Marcaine injected in a Lewis block as well as a local block to the second ray, right foot, total of 10 mL was utilized. Attention was then directed to the dorsal aspect of the right second metatarsophalangeal joint where a 4 cm longitudinal linear incision was created overlying the surgical neck of the second metatarsal extending to the distal interphalangeal joint of the second toe. The incision was deepened in the same plane with great care to identify and retract all vital neurovascular structures. Only necessary blood vessels were cauterized as encountered. The incision was deepened down to the extensor tendon where a Z slide lengthening was performed. The extensor tendon was reflected proximally and distally allowing for access to the metatarsophalangeal joint. The extensor rosas was released as well as the dorsal and medial aspect of the metatarsophalangeal joint. The digit had medial deviation noted. It was then decided to perform an augmentation of the lateral collateral ligament to improve alignment. First step and to improve the alignment was to reduce the length of the second metatarsal, which was performed with an oblique cut from distal lateral to proximal medial from the surgical neck distally. This allowed the capital fragment to translocate proximally and medially and was fixated in its corrected position utilizing a 2.0 snap-off screw of 14 mm of length. Excellent bony apposition and fixation was appreciated at this time. The head was further contoured and smoothed with a rongeur. The area was flushed with copious amounts of normal saline. Attention was then directed to the contracture at the proximal interphalangeal joint of the right second digit where an arthrodesis procedure was performed. The head of the proximal phalanx was fashioned into a peg utilizing a power sagittal saw and power bur. The base of the middle phalanx was fashioned into a hole. There was a hole created utilizing a power bur. Next, a 0.054 K-wire was driven down the toe securing the digit in rectus alignment. The excess K wire was cut and a protective ball placed over the end of the wire that extended from the distal aspect of the right second digit. The wound was flushed with copious amounts of normal saline and closure was performed in layers. Deep closure was performed with 3-0 Vicryl, superficial with 4-0 Vicryl, skin closure with 4-0 Prolene in a horizontal mattress type stitch. Attention was then directed to the first metatarsophalangeal joint area where a 5 cm longitudinal linear incision was created. The incision was deepened in the same plane with great care to identify and retract all vital neurovascular structures. Only necessary blood vessels were cauterized as encountered. The incision was deepened down to the capsular tissue where a longitudinal capsulotomy was performed and extended medially and laterally. This exposed the medial head of the first metatarsal, which was resected with a power sagittal saw. Blunt dissection was carried out into the first intermetatarsal space where a lateral release was performed, which included a release of the lateral capsule. The release of the conjoint tendon of the adductor hallucis as well as the fibular sesamoidal ligament. The hallux was then forcibly abducted releasing any additional fibers holding it in its abnormal position. Next, a power sagittal saw was used to create an Ang type bunionectomy with great care to preserve the sesamoidal apparatus. The osteotomy was performed from medial to lateral, allowing the capital fragment to translocate laterally and was correct and it was then fixated utilizing a 0.062 threaded K-wire driven from dorsal proximal to plantar distal with great care not to penetrate the articular cartilage. The K-wire was cut flush with the dorsal aspect of the first metatarsal. The head of the first metatarsal was further contoured and smooth utilizing a power sagittal saw and power bur. There remained some lateral deviation to the right hallux and an Keshawn type procedure was then performed. Subperiosteal dissection was carried out to the base and diaphysis of the proximal phalanx. A wedge of bone was resected with the lateral cortices held intact and the base of the wedge was medial. Once this wedge of bone was removed, the gap was closed, improving the overall alignment of the right hallux. A steamboat pilot hole of 1.5 mm in diameter was created to the dorsal medial aspect of the osteotomy allowing a 20-gauge monofilament wire to pass through the steamboat pilot hole securing the osteotomy in a closed position. Excellent bony apposition and fixation was noted at this time. The wound was flushed with copious amounts of normal saline throughout the procedure. Closure was then performed with layers. Deep closure was performed with 3-0 Vicryl, superficial with 4-0 Vicryl, skin closed with 4-0 Prolene in a horizontal mattress type stitch. Attention was then directed to the proximal dorsal aspect of the right foot where a raised skin lesion was identified. The lesion was approximately 6 mm in diameter. Two semi-elliptical incisions were created from medial to lateral circumscribing the lesion. Once the skin lesion was sharply incised. It was sent for gross and microscopic evaluation. No deep pathology was identified. The wound was flushed with copious amounts of normal saline and skin closure was performed with 4-0 Prolene in a simple interrupted type stitch. Postoperative injection consisted of 15 mL of 1:1 mixture of 1% Xylocaine, 0.5% Marcaine injected in local infusion to the surgical site. A 10 mg dexamethasone was injected into the first intermetatarsal space just lateral to the first metatarsophalangeal joint area. Postoperative dressing consisted of Betadine soaked Adaptic, sterile 4 x 4, sterile Kerlix all secured with a Coban wrap. The patient tolerated the anesthesia and procedure well, was transported from the operating room to the recovery area with vital signs stable and vascular status intact to all digits of the right foot. She was given a prescription for Vicodin as well as Keflex. She is to be nonweightbearing on the right foot with heel contact for balance and transfers only. I will see the patient back in my office in approximately 1 week period of time or sooner if necessary. Job ID: [id number] DocumentID: [id number] Dictated Date: 04/28/2020 11:25:48 Data Security Administrator Date: 04/28/2020 16:27:01 Dictated By: DEEPAK FIELDS DPM
== END 2020-04-28 13:40 | disposition home or self-care (01) ==
LOC: SDC 07:26
PROVIDERS: ATTEND Podiatrist Foot & Ankle Surgery
DX: M20.11 Hallux valgus (acquired), right foot (principal); M20.31 Hallux varus (acquired), right foot; M20.41 Other hammer toe(s) (acquired), right foot; D22.71 Melanocytic nevi of right lower limb, including hip; M24.574 Contracture, right foot; M89.371 Hypertrophy of bone, right ankle and foot; I12.9 Hypertensive chronic kidney disease with stage 1 through stage 4 chronic kidney disease, or unspecified chronic kidney disease; N18.3 Chronic kidney disease, stage 3 (moderate); E03.8 Other specified hypothyroidism; E78.2 Mixed hyperlipidemia; J30.89 Other allergic rhinitis; G47.33 Obstructive sleep apnea (adult) (pediatric); K44.9 Diaphragmatic hernia without obstruction or gangrene; E78.00 Pure hypercholesterolemia, unspecified; F41.9 Anxiety disorder, unspecified; F32.9 Major depressive disorder, single episode, unspecified; G43.909 Migraine, unspecified, not intractable, without status migrainosus; M06.9 Rheumatoid arthritis, unspecified; Z79.82 Long term (current) use of aspirin; Z79.899 Other long term (current) drug therapy; Z87.891 Personal history of nicotine dependence; Z80.3 Family history of malignant neoplasm of breast; Z80.0 Family history of malignant neoplasm of digestive organs; Z80.1 Family history of malignant neoplasm of trachea, bronchus and lung
CPT/HCPCS: 11421; 28285; 28299; 28308; 73620; 87081; 88305; C1713 ×2

== ENCOUNTER 2021-05-18 11:01 | Emergency (ER) | payer MEDICARE, OTHER ==
[~2021-05-18] VITALS: Ht 170 cm; Wt 72.0 kg
[~2021-05-18 11:01] MED LIST changes: +ACHD5005 PO; +CEPH500C PO
--- NOTE | 2021-05-18 12:02 | ED Lower Extremity ---
General Chief Complaint: Lower Extremity Stated Complaint: R LEG PAIN Nursing Triage Note: PT REPORTS R KNEE PAIN FOLLOWING A FALL 48HRS AGO, NOW HAS TO USE A CANE TO AMBULATE AND REPORTS PAIN BEGAN IN THE R CALF AND HAS PROGRESSIVELY MOVED UP TO THE POSTERIOR THIGH. PAIN IS WORST WHILE STRAIGHTENING THE AFFECTED LIMB. Source: patient Exam Limitations: no limitations History of Present Illness Date Seen by Provider: May 18, 2021 Time Seen by Provider: 12:01 Initial Comments Tell a few days ago when her check her house landing on both knees. The left knee hurt worse initially but that pain is now gone. She has ongoing right knee pain and over the past few days has developed some pain to the right calf. She is worried she may have a clot. Onset: last week Severity: moderate Pain/Injury Location: right leg, right knee Method of Injury: fell Modifying Factors: Worse With Movement Allergies and Home Medications Allergies Coded Allergies: No Known Drug Allergies (Unverified , 04/22/20) Home Medications Amlodipine Besylate/Benazepril 1 Each Capsule, 1 EACH PO DAILY, (Reported) Aspirin 81 Mg Tablet.dr, 81 MG PO DAILY, (Reported) Biotin 1,000 Mcg Tablet, 1,000 MCG PO DAILY, (Reported) Cephalexin 500 Mg Capsule, 1 CAP PO TID Prescribed by: DEEPAK FIELDS on 04/28/20 1113 Duloxetine HCl 60 Mg Capsule.dr, 60 MG PO DAILY, (Reported) Ezetimibe 10 Mg Tablet, 10 MG PO DAILY, (Reported) Fish Oil/Borage/Flax/Om3,6,9#1 1,200 Mg Capsule, 1,200 MG PO DAILY, (Reported) Flaxseed Oil 1,000 Mg Capsule, 1,000 MG PO DAILY, (Reported) Gabapentin 300 Mg Capsule, 300 MG PO BID, (Reported) Hydrocodone/Acetaminophen 1 Each Tablet, 1 EACH PO Q4H Prescribed by: DEEPAK FIELDS on 04/28/20 1113 Hydroxyzine HCl 25 Mg Tablet, 25 MG PO BID, (Reported) Levothyroxine Sodium 112 Mcg Tablet, 112 MCG PO DAILY, (Reported) Potassium Chloride 20 Meq Tab.er.prt, 20 MEQ PO DAILY, (Reported) Trazodone HCl 100 Mg Tablet, 200 MG PO HS, (Reported) Patient Home Medication List Home Medication List Reviewed: Yes Review of Systems Constitutional: see HPI EENTM: see HPI Respiratory: no symptoms reported Cardiovascular: no symptoms reported Genitourinary: no symptoms reported Musculoskeletal: see HPI Skin: no symptoms reported Psychiatric/Neurological: No Symptoms Reported Past Jehrmsl-Cauckg-Wrflkg Hx Patient Social History Tobacco Use?: No Substance use?: No Immunizations Up To Date Influenza Vaccine Up-to-Date: Yes; Up-to-Date Seasonal Allergies Seasonal Allergies: Yes Past Medical History Surgery/Hospitalization HX: oopherectomy hx. hiatal hernia repair. Surgeries: Yes (OVARIAN TUMOR, HIATAL HERNIA ) Respiratory: Yes Sleep Apnea Currently Using CPAP: Yes Cardiac: Yes Hypertension Neurological: No Sexually Transmitted Disease: No HIV/AIDS: No Genitourinary: Yes (STAGE 3) Renal Failure Gastrointestinal: No Musculoskeletal: Yes Arthritis Endocrine: Yes Hypothyroidsim HEENT: Yes (READING GLASSES, DENTURES) Loss of Vision: Denies Hearing Impairment: Denies Cancer: No Psychosocial: Yes Anxiety, Depression Integumentary: No Blood Disorders: No Adverse Reaction/Blood Tranf: No (N/A) Physical Exam Vital Signs Vital Signs - First Documented 05/18/21 11:20 Temp 36.4 Pulse 70 Resp 18 B/P (MAP) 130/80 (97) Pulse Ox 94 O2 Delivery Room Air Capillary Refill : Less Than 3 Seconds Height, Weight, BMI Height: '" Weight: lbs. oz. kg; 24.00 BMI Method: General Appearance: WD/WN, no apparent distress HEENT: PERRL/EOMI, normal ENT inspection Respiratory: no respiratory distress, no accessory muscle use Hips: bilateral hip non-tender, bilateral hip normal inspection, bilateral hip normal range of motion Legs: bilateral leg non-tender, bilateral leg normal inspection, bilateral leg normal range of motion; right leg other Knees: bilateral knee non-tender, bilateral knee normal inspection, bilateral knee normal range of motion Ankles: bilateral ankle non-tender, bilateral ankle normal inspection, bilateral ankle normal range of motion Neurologic/Psychiatric: alert, normal mood/affect, oriented x 3 Skin: normal color, warm/dry Progress/Results/Core Measures Results/Orders My Orders Orders - ZANDRA LINARES APRN Us Venous Lower Ext Rt (05/18/21 12:00) Knee, Right, 3 Views (05/18/21 12:00) Vital Signs/I&O 05/18/21 11:20 Temp 36.4 Pulse 70 Resp 18 B/P (MAP) 130/80 (97) Pulse Ox 94 O2 Delivery Room Air Blood Pressure Mean: 97 Departure Communication (Admissions) She states that she cannot take Tylenol or ibuprofen because of her stage III kidney disease. Discussed with her that Tylenol was safe to take but she is still reluctant to do so. We will give her prescription for tramadol but will increase the time between pills to twice daily given her kidney disease. Impression Primary Impression: Osteoarthritis of right knee Additional Impression: Muscle strain Disposition: HOME, SELF-CARE Condition: Stable Departure-Patient Inst. Decision time for Depature: 12:55 Referrals: YISSEL ROSARIO MD (PCP/Family) Primary Care Physician Patient Instructions: Muscle Strain Add. Discharge Instructions: 1. Return to ER for any concerns. Follow-up with Dr. Rosario this week or next for recheck. All discharge instructions reviewed with patient and/or family. Voiced understanding. Scripts Tramadol HCl (Ultram) 50 Mg Tablet 50 MG PO BID, #10 TAB Prov: ZANDRA LINARES APRN 05/18/21 ZANDRA LINARES APRN May 18, 2021 12:02
[2021-05-18] MEDS ORDERED: TRAM-42 PO (12:58)
--- NOTE | 2021-05-18 12:59 | Diagnostic Imaging Report ---
INDICATION: Knee pain status post injury COMPARISON: None. FINDINGS: 3 views of the right knee were obtained and show no fractures, dislocations, or other acute bony abnormalities. Mild osteoarthritic changes are noted. Joint spaces are otherwise well-maintained. The soft tissues appear unremarkable. No radiopaque foreign bodies are identified. IMPRESSION: No acute fracture or dislocation of the right knee. Dictated by: Dictated on workstation # [id number]
[2021-05-18 13:07] VITALS: BP 130/80
--- NOTE | 2021-05-18 13:15 | Diagnostic Imaging Report ---
INDICATION: Right leg pain TECHNIQUE: Multiple real-time grayscale images were obtained over the right lower extremity in various projections, bilaterally. Additional duplex Doppler and color Doppler images were also obtained. CORRELATION STUDY: None FINDINGS: Color and grayscale sonographic images demonstrate no intraluminal defect within the visualized portion of the common femoral, superficial femoral and/or popliteal veins to suggest thrombus formation. These vessels demonstrate normal response to compression and augmentation. No soft tissue fluid collection. IMPRESSION: 1. Negative for deep venous thrombosis of the right leg. Dictated by: Dictated on workstation # [id number]
== END 2021-05-18 13:06 | disposition home or self-care (01) ==
LOC: EDUNIT# 11:01 → ER 11:02
DX: S86.911A Strain of unspecified muscle(s) and tendon(s) at lower leg level, right leg, initial encounter (principal); M17.11 Unilateral primary osteoarthritis, right knee; G47.30 Sleep apnea, unspecified; I10 Essential (primary) hypertension; E03.9 Hypothyroidism, unspecified; F41.9 Anxiety disorder, unspecified; F32.9 Major depressive disorder, single episode, unspecified; Z79.890 Hormone replacement therapy; Z79.899 Other long term (current) drug therapy; Z79.82 Long term (current) use of aspirin; W19.XXXA Unspecified fall, initial encounter
CPT/HCPCS: 73562

== ENCOUNTER 2023-02-21 15:15 | Emergency (ER) | payer MEDICARE, OTHER ==
[~2023-02-21 15:15] MED LIST changes: -AMLO1CAP18 PO; +AMLO1CAP71 PO; +POTA-169 PO; -POTA20TA8 PO; +TRAM-42 PO
--- NOTE | 2023-02-21 15:59 | ED Abdominal Pain ---
General Stated Complaint: ABDOMINAL PAIN Source of Information: Patient Exam Limitations: No Limitations History of Present Illness Date Seen by Provider: Feb 21, 2023 Time Seen by Provider: 16:00 Initial Comments Patient is an 82-year-old female with a history of hypertension who presents to the emergency room with a chief complaint of epigastric discomfort. Patient states that she has noticed this over the course of the last 3 weeks. She seen her primary care provider, Dr. Walter a couple of times for this. She has been on a trial of Carafate without any relief of symptoms. She is not currently on a PPI. She has had a history of hiatal hernia repair. She has had nausea/dry heaves. No diarrhea, black or bloody stool. She denies any dietary changes in recent weeks. She denies fevers or chills. No URI symptoms or cough. She does not have any known cardiac history. She did receive a GI cocktail prior to transfer from the clinic and states that that improved her discomfort. She denies chest pain/heaviness/pressure. She is not short of breath. She does wear oxygen to sleep at night. She is a former smoker having quit 50 years ago. She states her discomfort and dyspepsia are at their worst in the morning when she wakes up. She does believe she has lost about 10 pounds in the last 3 weeks secondary to appetite decreased. Timing/Duration: Other (3 weeks) Severity/Quality: Moderate, Burning Location: Epigastric Radiation: Back Activities at Onset: Sleeping Modifying Factors: Worsens With Lying down Associated Symptoms: Back Pain, Nausea/Vomiting (Nausea without vomiting), Wea kness (Feels a little generally weak) Allergies and Home Medications Allergies Coded Allergies: No Known Drug Allergies (Unverified , 04/22/20) Patient Home Medication List Home Medication List Reviewed: Yes Amlodipine Besylate/Benazepril (Amlodipine-Benazepril 2.5-10) 1 Each Capsule, 1 EACH PO DAILY, (Reported) Entered as Reported by: HALEIGH MARTINEZ on 04/22/20 1323 Aspirin (Aspir 81) 81 Mg Tablet.dr 81 MG PO DAILY, (Reported) Entered as Reported by: HALEIGH MARTINEZ on 04/22/20 1323 Biotin (Biotin) 1,000 Mcg Tablet, 1,000 MCG PO DAILY, (Reported) Entered as Reported by: HALEIGH MARTINEZ on 04/22/20 1323 Cephalexin (Cephalexin) 500 Mg Capsule, 1 CAP PO TID Prescribed by: DEEPAK FIELDS on 04/28/20 1113 Duloxetine HCl (Duloxetine HCl) 60 Mg Capsule.dr, 60 MG PO DAILY, (Reported) Entered as Reported by: HALEIGH MARTINEZ on 04/22/20 1323 Ezetimibe (Ezetimibe) 10 Mg Tablet, 10 MG PO DAILY, (Reported) Entered as Reported by: HALEIGH MARTINEZ on 04/22/20 1323 Fish Oil/Borage/Flax/Om3,6,9#1 (Burke 3-6-9 1,200 mg Softgel) 1,200 Mg Capsule, 1,200 MG PO DAILY, (Reported) Entered as Reported by: HALEIGH MARTINEZ on 04/22/20 1323 Flaxseed Oil (Flax Seed Oil) 1,000 Mg Capsule, 1,000 MG PO DAILY, (Reported) Entered as Reported by: HALEIGH MARTINEZ on 04/22/20 1323 Gabapentin (Neurontin) 300 Mg Capsule, 300 MG PO BID, (Reported) Entered as Reported by: HALEIGH MARTINEZ on 04/22/20 1323 Hydrocodone/Acetaminophen (Hydrocodone-Acetamin 5-325 mg) 1 Each Tablet, 1 EACH PO Q4H Prescribed by: DEEPAK FIELDS on 04/28/20 1113 Hydroxyzine HCl (Hydroxyzine HCl) 25 Mg Tablet, 25 MG PO BID, (Reported) Entered as Reported by: HALEIGH MARTINEZ on 04/22/20 1323 Levothyroxine Sodium (Synthroid) 112 Mcg Tablet, 112 MCG PO DAILY, (Reported) Entered as Reported by: HALEIGH MARTINEZ on 04/22/20 1323 Potassium Chloride (Klor-Con M20) 20 Meq Tab.er.prt, 20 MEQ PO DAILY, (Reported) Entered as Reported by: HALEIGH MARTINEZ on 04/22/20 1323 Tramadol HCl (Ultram) 50 Mg Tablet, 50 MG PO BID Prescribed by: ZANDRA LINARES on 05/18/21 1258 Trazodone HCl (Trazodone HCl) 100 Mg Tablet, 200 MG PO HS, (Reported) Entered as Reported by: HALEIGH MARTINEZ on 04/22/20 1323 Review of Systems Review of Systems Constitutional: see HPI EENTM: No Symptoms Reported Respiratory: No Symptoms Reported Cardiovascular: No Symptoms Reported Gastrointestinal: Abdominal Pain, Nausea Genitourinary: No Symptoms Reported Musculoskeletal: no symptoms reported Skin: no symptoms reported Past Tpihqii-Ktjjiz-Xntgkm Hx Seasonal Allergies Seasonal Allergies: Yes Past Medical History Surgery/Hospitalization HX: oopherectomy hx. hiatal hernia repair. Surgeries: Yes (OVARIAN TUMOR, HIATAL HERNIA ) Respiratory: Yes Sleep Apnea Currently Using CPAP: Yes Cardiac: Yes Hypertension Neurological: No Sexually Transmitted Disease: No HIV/AIDS: No Genitourinary: Yes (STAGE 3) Renal Failure Gastrointestinal: No Musculoskeletal: Yes Arthritis Endocrine: Yes Hypothyroidsim HEENT: Yes (READING GLASSES, DENTURES) Loss of Vision: Denies Hearing Impairment: Denies Cancer: No Psychosocial: Yes Anxiety, Depression Integumentary: No Blood Disorders: No Adverse Reaction/Blood Tranf: No (N/A) Physical Exam Vital Signs Vital Signs - First Documented 02/21/23 15:55 Pulse 86 Resp 20 B/P (MAP) 161/92 (115) Pulse Ox 94 O2 Delivery Nasal Cannula O2 Flow Rate 2.00 Capillary Refill : Height/Weight/BMI Height: '" Weight: lbs. oz. kg; 24.00 BMI Method: General Appearance: WD/WN, no apparent distress, obese HEENT: PERRL/EOMI Respiratory: lungs clear, normal breath sounds, no respiratory distress, no accessory muscle use Cardiovascular: regular rate, rhythm Peripheral Pulses: 1+ Radial Pulses (R), 1+ Radial Pulses (L) Gastrointestinal: normal bowel sounds, non tender, soft Extremities: normal range of motion, normal inspection, no pedal edema, normal capillary refill Neurologic/Psychiatric: alert, normal mood/affect, oriented x 3 Skin: normal color, warm/dry Progress/Results/Core Measures Results/Orders Lab Results Laboratory Tests Test 02/21/23 16:05 Range/Units White Blood Count 6.9 4.3-11.0 10^3/uL Red Blood Count 4.76 3.80-5.11 10^6/uL Hemoglobin 15.0 11.5-16.0 g/dL Hematocrit 43 35-52 % Mean Corpuscular Volume 91 80-99 fL Mean Corpuscular Hemoglobin 32 25-34 pg Mean Corpuscular Hemoglobin Concent 35 32-36 g/dL Red Cell Distribution Width 11.9 10.0-14.5 % Platelet Count 285 130-400 10^3/uL Mean Platelet Volume 9.5 9.0-12.2 fL Immature Granulocyte % (Auto) 0 % Neutrophils (%) (Auto) 74 42-75 % Lymphocytes (%) (Auto) 16 12-44 % Monocytes (%) (Auto) 9 0-12 % Eosinophils (%) (Auto) 0 0-10 % Basophils (%) (Auto) 1 0-10 % Neutrophils # (Auto) 5.1 1.8-7.8 10^3/uL Lymphocytes # (Auto) 1.1 1.0-4.0 10^3/uL Monocytes # (Auto) 0.6 0.0-1.0 10^3/uL Eosinophils # (Auto) 0.0 0.0-0.3 10^3/uL Basophils # (Auto) 0.0 0.0-0.1 10^3/uL Immature Granulocyte # (Auto) 0.0 0.0-0.1 10^3/uL Sodium Level 137 135-145 MMOL/L Potassium Level 3.7 3.6-5.0 MMOL/L Chloride Level 100 98-107 MMOL/L Carbon Dioxide Level 26 21-32 MMOL/L Anion Gap 11 5-14 MMOL/L Blood Urea Nitrogen 14 7-18 MG/DL Creatinine 1.04 0.60-1.30 MG/DL Estimat Glomerular Filtration Rate 54 BUN/Creatinine Ratio 13 Glucose Level 96 70-105 MG/DL Calcium Level 10.2 H 8.5-10.1 MG/DL Corrected Calcium 10.0 8.5-10.1 MG/DL Total Bilirubin 0.5 0.1-1.0 MG/DL Aspartate Amino Transf (AST/SGOT) 21 5-34 U/L Alanine Aminotransferase (ALT/SGPT) 22 0-55 U/L Alkaline Phosphatase 114 40-136 U/L Troponin I < 0.028 <0.028 NG/ML Total Protein 7.1 6.4-8.2 GM/DL Albumin 4.2 3.2-4.5 GM/DL My Orders Orders - JONNATHAN,CHANEL M MD Ed Iv/Invasive Line Start (02/21/23 15:59) Cbc With Automated Diff (02/21/23 15:59) Comprehensive Metabolic Panel (02/21/23 15:59) Ekg Tracing (02/21/23 15:59) Troponin I López (02/21/23 15:59) Chest 1 View, Ap/Pa Only (02/21/23 16:24) Pantoprazole Injection (Protonix Injecti (02/21/23 17:00) Vital Signs/I&O 02/21/23 15:55 Pulse 86 Resp 20 B/P (MAP) 161/92 (115) Pulse Ox 94 O2 Delivery Nasal Cannula O2 Flow Rate 2.00 Progress Progress Note : Time: 17:06 Progress Note Patient seen and evaluated by me. Evaluation today includes physical exam, CBC, chemistry, troponin, chest x-ray and EKG. Pertinent physical exam findings include well-developed well-nourished obese 82-year-old female in no acute distress. Mildly tender epigastrium, palpable ventral hernia in the right mid abdomen that is soft and reducible. Heart is regular, lungs are clear. No lower extremity edema. No focal neurologic deficits. Vital signs are stable. No hypotension, tachycardia or hypoxia noted. Differential diagnosis based on history and physical exam, acid reflux/gastritis, biliary colic, acute pancreatitis, atypical ACS. Labs independently interpreted by me, CBC is completely normal, Chem-12 is completely normal. Troponin is undetectable. As the patient has had this d iscomfort since awakening at 6 AM she would have had ample time to elevate her troponin if this were an atypical ACS presentation. Her EKG is normal sinus rhythm without ectopy, some interventricular conduction delay noted with prolonged RI and prolonged QRS. Chest x-ray is unremarkable. Patient is treated with a second dose of Maalox and viscous lidocaine here in the ED. She is also dosed with 40 mg of Protonix. Her abdominal exam is benign, consideration for CT abdomen and pelvis however history and physical do not support the need. We will start her on a PPI outpatient and have her follow-up with her primary care doctor, Dr. Walter. Return precautions provided. The patient verbalized understanding. All questions are sought and answered. Initial ECG Impression Date: Feb 21, 2023 Initial ECG Impression Time: 16:10 Initial ECG Rate: 88 Initial ECG Rhythm: Normal Sinus Initial ECG Intervals RI interval 272 QRS 138 QTc 440 Comment Normal sinus rhythm without ectopy, prolonged RI, first-degree AV block, prolonged QRS 138 Diagnostic Imaging Diagonstic Imaging: Xray Plain Films/CT/US/NM/MRI: chest Comments [facility] [place], [place] NAME: RICHAR MURDOCK [facility] REC#: [id number] PT STATUS: REG ER : 1940 PHYSICIAN: CHANEL DE SANTIAGO MD ADMIT DATE: 02/21/23/ER Draft Date of Exam:02/21/23 CHEST 1 VIEW, AP/PA ONLY INDICATION: Epigastric pain and chest discomfort. TECHNIQUE: AP view of the chest is obtained. COMPARISON: No previous study is available for comparison at this time. FINDINGS: Heart size and pulmonary vasculature are within normal limits, and the lungs are clear, bilaterally. IMPRESSION: Unremarkable chest. Dictated on workstation # [id number] Dict: 02/21/23 1641 Trans: 02/21/23 1642 [id number] Interpreted by: STEW FREEMAN MD Electronically signed by: Departure Impression Primary Impression: Dyspepsia Additional Impression: GERD (gastroesophageal reflux disease) Qualified Codes: K21.9 - Gastro-esophageal reflux disease without esophagitis Departure-Patient Inst. Decision time for Depature: 17:10 Referrals: ARTHUR WALTER DO Patient Instructions: Acid Reflux and Gastroesophageal Reflux Disease in Adults Add. Discharge Instructions: Try and eat smaller meals more frequently throughout the day. I have started you on Protonix 40 mg tablets. You can take 1 at night for the next 4 to 8 weeks. This should help relieve the discomfort you are experiencing in the morning when you wake up. Avoid eating 3 hours prior to bedtime. If you develop worsening pain especially with vomiting or fever please return to the emergency department for reevaluation. Please follow-up with Dr. Walter in 2 weeks. Scripts Pantoprazole Sodium (Protonix) 40 Mg Lamar. 40 MG PO DAILY, #30 TAB Prov: CHANEL DE SANTIAGO MD 02/21/23 Copy Copies To 1: ARTHUR WALTER KATHRYN M MD Feb 21, 2023 15:59
[2023-02-21 16:25] LABS: BASOPHILS % (AUTO) 1 % (0-10); EOSINOPHILS % (AUTO) 0 % (0-10); HEMATOCRIT 43 % (35-52); LYMPHOCYTES # (AUTO) 1.1 10^3/uL (1.0-4.0); LYMPHOCYTES % (AUTO) 16 % (12-44); MEAN CORPUSCULAR HEMOGLOBIN 32 pg (25-34); MEAN CORPUSCULAR HGB CONC 35 g/dL (32-36); MEAN CORPUSCULAR VOLUME 91 fL (80-99); MEAN PLATELET VOLUME 9.5 fL (9.0-12.2); MONOCYTES # (AUTO) 0.6 10^3/uL (0.0-1.0); MONOCYTES % (AUTO) 9 % (0-12); NEUTROPHILS # (AUTO) 5.1 10^3/uL (1.8-7.8); NEUTROPHILS % (AUTO) 74 % (42-75); PLATELET COUNT 285 10^3/uL (130-400); WHITE BLOOD COUNT 6.9 10^3/uL (4.3-11.0)
[2023-02-21 16:33] LABS: ALBUMIN 4.2 GM/DL (3.2-4.5)
[2023-02-21 16:34] LABS: CHLORIDE 100 MMOL/L (98-107); POTASSIUM 3.7 MMOL/L (3.6-5.0); SODIUM 137 MMOL/L (135-145)
[2023-02-21 16:35] LABS: CALCIUM 10.2 MG/DL (8.5-10.1)
[2023-02-21 16:36] LABS: GLUCOSE 96 MG/DL (70-105); TOTAL PROTEIN 7.1 GM/DL (6.4-8.2)
[2023-02-21 16:37] LABS: CARBON DIOXIDE 26 MMOL/L (21-32)
[2023-02-21 16:38] LABS: BILIRUBIN,TOTAL 0.5 MG/DL (0.1-1.0)
[2023-02-21 16:39] LABS: ALKALINE PHOSPHATASE 114 U/L (40-136)
[2023-02-21 16:40] LABS: CREATININE SERUM 1.04 MG/DL (0.60-1.30); GFR ESTIMATED 54
[2023-02-21 16:41] LABS: BUN/CREATININE RATIO 13
--- NOTE | 2023-02-21 16:42 | Diagnostic Imaging Report ---
INDICATION: Epigastric pain and chest discomfort. TECHNIQUE: AP view of the chest is obtained. COMPARISON: No previous study is available for comparison at this time. FINDINGS: Heart size and pulmonary vasculature are within normal limits, and the lungs are clear, bilaterally. IMPRESSION: Unremarkable chest. Dictated by: Dictated on workstation # [id number]
[2023-02-21 16:43] LABS: ALANINE AMINOTRANSFERASE 22 U/L (0-55)
[2023-02-21] MEDS ORDERED: PANTOPRAZOLE 40 MG (PROTONIX) VIAL IV ONE (17:00)
[2023-02-21] MEDS ORDERED: ANTACID SUSP 30 ML UDC (MYLANTA) PO ONE (17:15)
[2023-02-21] MEDS ORDERED: LIDOCAINE 2% VISCOUS 15 ML UDC PO ONE (17:15)
[2023-02-21] MEDS ORDERED: PANT40SU PO (17:19)
[2023-02-21 17:54] VITALS: BP 160/83
== END 2023-02-21 17:54 | disposition home or self-care (01) ==
LOC: EDUNIT# 15:15 → ER 15:18
DX: K21.9 Gastro-esophageal reflux disease without esophagitis (principal); G47.30 Sleep apnea, unspecified; E66.9 Obesity, unspecified; Z68.24 Body mass index [BMI] 24.0-24.9, adult; Z87.891 Personal history of nicotine dependence; Z99.89 Dependence on other enabling machines and devices
CPT/HCPCS: 36415; 71045; 80053; 84484; 85025; 93005

== ENCOUNTER 2023-03-16 09:38 | Outpatient (CLI) | payer MEDICARE, OTHER ==
[~2023-03-16] VITALS: Ht 139.7 cm; Wt 84.6 kg
[~2023-03-16 09:38] MED LIST changes: +PANT40SU PO
[2023-03-17] MEDS ORDERED: AMLO-379 PO (09:35)
[2023-03-17] MEDS ORDERED: DICL100G13 TP (09:35)
[2023-03-17] MEDS ORDERED: SUCR1TAB PO (09:35)
[2023-03-17] MEDS ORDERED: ONDA8TAB13 SL (09:35)
== END 2023-03-17 09:38 | disposition home or self-care (01) ==
LOC: PREOP 09:38
PROVIDERS: ATTEND Surgery
DX: Z01.818 Encounter for other preprocedural examination (principal); Z12.11 Encounter for screening for malignant neoplasm of colon; Z80.0 Family history of malignant neoplasm of digestive organs

== ENCOUNTER 2023-03-23 12:56 | Day surgery (SDC) | payer MEDICARE, OTHER ==
[~2023-03-23] VITALS: Ht 139.2 cm; Wt 84.6 kg
[~2023-03-23 12:56] MED LIST changes: +AMLO-379 PO; +DICL100G13 TP; +ONDA8TAB13 SL; +SUCR1TAB PO
[2023-03-23] MEDS ORDERED: LACTATED RINGERS 1,000 ML IV STA (13:05)
--- NOTE | 2023-03-23 13:08 | Progress Note-Pre Operative ---
Pre-Operative Progress Note Date of Available H&P: March 23, 2023 Date H&P Reviewed: March 23, 2023 Time H&P Reviewed: 13:00 History & Physical: No changes noted Pre-Operative Diagnosis: screening/family hx NICK VALENTIN MD March 23, 2023 13:08
--- NOTE | 2023-03-23 13:10 | Discharge Inst-Surgical ---
D/C Lap Instructions-BARBIE Follow Up Appt Activity as tolerated High Fiber Diet 25g or more per day Avoid Alcohol, Caffeine, Spicy [place] and Acid foods. Drink 64 fluid oz or more of fluids per day. Symptoms to Report: Fever over 101 degree F, Nausea/Vomiting If any problems/questions: Contact your physician or go to Emergency Room NICK VALENTIN MD March 23, 2023 13:10
[2023-03-23] MEDS ORDERED: LIDOCAINE JELLY 2% 6 ML SYRINGE MM PRN (13:15)
[2023-03-23] MEDS ORDERED: ONDANSETRON 4 MG/2 ML (SDV) Z0FRAN IVP PRN (13:15)
[2023-03-23] MEDS ORDERED: ONDANSETRON 4 MG (ZOFRAN) ORAL DISSOLVE TAB PO PRN (13:15)
[2023-03-23 13:20] VITALS: BP 165/80
[2023-03-23] MEDS ORDERED: PROPOFOL INJECTION 50 ML IV ONE (14:11)
[2023-03-23] MEDS ORDERED: LIDOCAINE JELLY 2% 6 ML SYRINGE ONE (14:25)
[2023-03-23 15:00] VITALS: BP 126/65
[2023-03-23 15:05] VITALS: BP 128/66
--- NOTE | 2023-03-23 15:09 | Progress Note-Post Operative ---
Post-Operative Progess Note Surgeon (s)/Chemical Processing Supervisor (s) Surgeon NICK VALENTIN MD Chemical Processing Supervisor: none Pre-Operative Diagnosis screening/family hx Post-Operative Diagnosis chronic stage 2 ext and int hemorrhoids, moderate sigmoid diverticulosis. Procedure & Operative Findings Date of Procedure 03/23/23 Procedure Performed/Findings colonoscopy Anesthesia Type mac Estimated Blood Loss Estimated blood loss (mL): minimal Specimens/Packing Specimens Removed none NICK VALENTIN MD March 23, 2023 15:09
[2023-03-23 15:25] VITALS: BP 128/66
--- NOTE | 2023-03-23 15:52 | Anesthesia-General Post-Op ---
MAC Patient Condition Mental Status/LOC: Same as Preop Cardiovascular: Satisfactory Nausea/Vomiting: Absent Respiratory: Satisfactory Pain: Controlled Complications: Absent Post Op Complications Complications None Follow Up Care/Instructions Patient Instructions None needed. Anesthesiology Discharge Order Discharge Order Patient is doing well, no complaints, stable vital signs, no apparent adverse anesthesia problems. No complications reported per nursing. AMBER JUAREZ CRNA March 23, 2023 15:52
--- NOTE | 2023-03-23 21:37 | OPERATIVE REPORT ---
DATE OF SERVICE: 03/23/2023 ATTENDING PRIMARY CARE PHYSICIAN: Dr. Hunter Loo. PREOPERATIVE DIAGNOSES: Screening colonoscopy with family history of colon cancer. POSTOPERATIVE DIAGNOSES: Chronic stage II external and internal hemorrhoids, moderate sigmoid diverticulosis. PROCEDURE: Colonoscopy. SURGEON: Nick Valentin MD ANESTHESIA: Monitored anesthesia care. ESTIMATED BLOOD LOSS: Minimal. FINDINGS: Chronic stage II external and internal hemorrhoids, moderate sigmoid diverticulosis. DISPOSITION: The patient tolerated the procedure well. INDICATIONS: The patient is an 82-year-old female in need of a screening colonoscopy. Her last colonoscopy was 04/2015 and she was found to have mild to moderate sigmoid diverticulosis and chronic stage II external and internal hemorrhoids as well as a benign rectal polyp. She was referred over to us for a followup screening colonoscopy. She does have a first-degree family history of colon cancer with her brother having the disease. She does not report any major issues with diarrhea, nor constipation as well as no red blood per rectum, nor any dark tarry stools. DESCRIPTION OF PROCEDURE: The patient was brought to the endoscopy suite and laid in the left lateral decubitus position. After adequate IV pain and sedative medications and monitored anesthesia care, a digital rectal examination was performed. Chronic stage II external and internal hemorrhoids were identified, not actively edematous nor inflamed and no bleeding. Normal sphincter tone was felt and there were no palpable masses. The endoscope was then intubated into the anus, rectum was gently insufflated. The endoscope was then advanced through the valves of Mann of the rectum with no polyps or any neoplasms identified. Through the sigmoid colon, a moderate sigmoid diverticulosis identified. The endoscope was then advanced through the remainder of the descending, transverse and ascending colon to the cecum, which were normal. There were no polyps or any neoplasms identified throughout the colon or rectum. The endoscope was then slowly withdrawn while taking a second look and suctioning of residual air with no additional findings. The patient tolerated the procedure well. We will recommend a high-fiber diet with a fiber supplementation on a daily basis, which should equal or exceed 25 grams daily as well as significant amounts of water to promote soft consistency stools on a daily basis. Due to her first-degree family history of colon cancer, we will recommend a followup colonoscopy in approximately 5 years. Job ID: [id number] DocumentID: [id number] Dictated Date: 03/23/2023 15:02:29 Junior Electrical Engineer Date: 03/23/2023 21:35:00 Dictated By: NICK VALENTIN MD
== END 2023-03-23 15:32 | disposition home or self-care (01) ==
LOC: ENDO 12:56
PROVIDERS: ATTEND Surgery
DX: Z12.11 Encounter for screening for malignant neoplasm of colon (principal); K64.4 Residual hemorrhoidal skin tags; K64.1 Second degree hemorrhoids; K57.30 Diverticulosis of large intestine without perforation or abscess without bleeding; Z80.0 Family history of malignant neoplasm of digestive organs; G47.33 Obstructive sleep apnea (adult) (pediatric); Z99.81 Dependence on supplemental oxygen; Z87.891 Personal history of nicotine dependence